=== PATIENT | female | born 1970 | race Caucasian/White ===

== ENCOUNTER 2017-07-22 20:32 | Emergency (ER) | payer BC, OTHER, SELFPAY ==
[2017-07-22] MEDS ORDERED: diphenhydrAMINE 50 MG/ML VIAL ONE (21:11)
[2017-07-22] MEDS ORDERED: methylPREDNISolone Sod Succ/PF 125 MG/2 ML VIAL ONE (21:13)
[2017-07-22] MEDS ORDERED: Famotidine/PF 20 mg/2ml Vial ONE (21:20)
[2017-07-22] MEDS ORDERED: Lorazepam 2 MG/ML VIAL ONE (22:42)
== END 2017-07-22 23:45 | disposition home or self-care (01) ==
LOC: ERS 20:32
DX: T78.40XA Allergy, unspecified, initial encounter (principal); F41.9 Anxiety disorder, unspecified; K21.9 Gastro-esophageal reflux disease without esophagitis; F17.210 Nicotine dependence, cigarettes, uncomplicated; Z79.899 Other long term (current) drug therapy
CPT/HCPCS: 96361; 96374; 96375; J1200; J2060; J2930; S0028

== ENCOUNTER 2018-03-30 12:07 | Emergency (ER) | payer BC, SELFPAY ==
[~2018-03-30 12:07] MED LIST: ISOVUE-370 76%-LOCM 1 ML ONE
[2018-03-30] MEDS ORDERED: Morphine 4 MG/ML VIAL ONE (12:27)
[2018-03-30] MEDS ORDERED: Ondansetron HCl/PF 4 MG/2 ML Vial ONE (12:27)
[2018-03-30 12:53] LABS: Bilirubin Negative (Negative); Blood, Urine Negative (Negative); Clarity CLEAR (Clear); Glucose, Urine (Dipstick) Negative (Negative); Leukocyte Negative (Negative); Nitrite Negative (Negative); Protein, Urine (Dipstick) Negative (Neg-Trace); pH, Urine 7.5 (5.0-9.0)
[2018-03-30 12:54] LABS: Hemoglobin 15.6 g/dL (12.0-16.0); Mean Corpuscular HGB CONC 33.8 g/dL (32.0-36.0); Mean Corpuscular Hemoglobin 32.4 pg (27.0-31.0); Mean Corpuscular Volume 95.9 fL (78.0-98.0); Platelet Count 383 thou/uL (130-400); RBC Distribution Width 13.4 % (11.5-14.5); Red Blood Cell (RBC) Count 4.83 mill/uL (4.20-5.40); White Blood Cell (WBC) Count 16.3 thou/uL (4.8-10.8)
[2018-03-30 13:09] LABS: Band 3 % (5-11); Lymphocytes 15 % (21-51); MDiff Complete? YES; Monocytes 6 % (0-10); Neutrophil 75 % (42-75); RBC Morphology Normal; Reactive Lymphocytes 1 % (0-10)
[2018-03-30 13:10] LABS: ALT (SGPT) 67 U/L (8-55); AST (SGOT) 21 U/L (5-34); Albumin 4.1 g/dL (3.5-5.0); Alkaline Phosphatase 105 U/L (40-150); Anion Gap 15 mmol/L (10-20); BUN (Urea Nitrogen) 11 mg/dL (7.0-18.7); Bilirubin, Total 0.3 mg/dL (0.2-1.2); Calc. Creatinine Clearance 0 mL/min (70-130); Calcium 9.1 mg/dL (7.8-10.44); Carbon Dioxide 23 mmol/L (22-29); Chloride 99 mmol/L (98-107); Estimated GFR-MDRD 63; Globulin 3.1 g/dL (2.4-3.5); Glucose 120 mg/dL (70-105); Lipase 39 U/L (8-78); Potassium 4.4 mmol/L (3.5-5.1); Protein, Total 7.2 g/dL (6.0-8.3); Sodium 133 mmol/L (136-145)
[2018-03-30] MEDS ORDERED: Ketorolac Tromethamine 30 MG/ML VIAL ONE (13:45)
--- NOTE | 2018-03-30 13:50 | RAD ---
ACUTE ABDOMINAL SERIES: Date: 03/30/18 HISTORY: Abdominal pain for 2-3 days. Nausea. FINDINGS: CHEST: Comparison with 12/09/16. The cardiac silhouette and pulmonary vasculature are within normal limits. The lungs are clear. There is mild elevation of right hemidiaphragm. No free intraperitoneal air is s een beneath the hemidiaphragms. No other interval change. UPRIGHT AND SUPINE VIEWS OF ABDOMEN: There is a moderate to large amount of retained fecal material seen throughout the colon. There is a gas-filled dilated loop of small bowel in the right upper quadrant which may actually represent the c olon. However, this cannot be further evaluated on this exam. Multiple surgical clips overlie the lef t abdomen. Phleboliths overlie the left hemipelvis. Osseous structures are intact. IMPRESSION: Constipation with moderate to large amount of retained fecal material seen throughout the colon. Ther e is a gas-filled dilated loop of colon representing the hepatic flexure. POS: [facility]
--- NOTE | 2018-03-30 14:36 | CT ---
CT ABDOMEN AND PELVIS WITH IV CONTRAST: DATE: 03/30/18. HISTORY: Generalized abdominal pain for 2-3 days. COMPARISON: 12/09/16. FINDINGS: There is minimal dependent atelectasis at each lung base. Postsurgical changes left upper quadrant are again present. There is a large amount of retained feca l material seen throughout the colon to the level of the proximal sigmoid colon. The ascending colon measured 8 cm in diameter. Gas density seen in the right upper quadrant on the recent radiograph of the abdomen is related to gas in the hepatic flexure. There is no mass seen at the level of transit ion from dilated colon filled with retained fecal material and a normal-caliber sigmoid colon. There are postsurgical changes involving the descending colon. There is a small hiatal hernia. The small bowel is normal in caliber. The liver, spleen, pancreas, bilateral adrenal glands, kidneys, abdominal aorta, and urinary bladder demonstrate a normal CT appearance. A small amount of free fluid is present in the right hemipelvis. No fluid collection, free intraperitoneal gas, or lymphadenopathy is seen in the abdomen or pelvis. IMPRESSION: 1. Constipation with dilatation of the majority of the colon from the level of the sacrum to the sandi ction of the descending colon and sigmoid colon. No constricting lesion is seen in this region. 2. Postsurgical changes of the descending colon. No dilated loops of small bowel are seen. 3. Small hiatal hernia. 4. Small amount of free fluid in the pelvis. 5. Minimal linear stranding seen at the level of the umbilicus in the anterior abdomen which could b e related to mild scarring. 6. Hysterectomy. POS: [facility]
== END 2018-03-30 14:24 | disposition home or self-care (01) ==
LOC: ERS 12:07
DX: K59.00 Constipation, unspecified (principal); K21.9 Gastro-esophageal reflux disease without esophagitis; G43.909 Migraine, unspecified, not intractable, without status migrainosus; F17.210 Nicotine dependence, cigarettes, uncomplicated; F41.9 Anxiety disorder, unspecified; Z71.6 Tobacco abuse counseling
CPT/HCPCS: 74022; 74177; 80053; 81003; 83690; 85025; 96361; 96374; 96375; 99406; J1885; J2270; J2405

== ENCOUNTER 2018-05-03 13:11 | Emergency (ER) | payer BC ==
[2018-05-03 13:49] LABS: #Eosinphils 0.2 thou/uL (0.0-0.7); #Lymphocytes 1.3 thou/uL (1.20-3.40); #Monocytes 1.1 thou/uL (0.11-0.59); #Neutrophils 6.8 thou/uL (1.40-6.50); %Basophils 0.3 % (0.0-1.0); %Eosinophils 1.7 % (0.0-10.0); %Lymphocytes 14.2 % (21.0-51.0); %Monocytes 11.8 % (0.0-10.0); Hemoglobin 14.2 g/dL (12.0-16.0); Mean Corpuscular HGB CONC 33.9 g/dL (32.0-36.0); Mean Corpuscular Hemoglobin 32.6 pg (27.0-31.0); Mean Corpuscular Volume 96.2 fL (78.0-98.0); Mean Platelet Volume 7.6 fL (7.4-10.4); Platelet Count 286 thou/uL (130-400); RBC Distribution Width 12.8 % (11.5-14.5); Red Blood Cell (RBC) Count 4.35 mill/uL (4.20-5.40); White Blood Cell (WBC) Count 9.5 thou/uL (4.8-10.8)
[2018-05-03 14:05] LABS: ALT (SGPT) 20 U/L (8-55); AST (SGOT) 14 U/L (5-34); Albumin 3.9 g/dL (3.5-5.0); Alkaline Phosphatase 71 U/L (40-150); Anion Gap 12 mmol/L (10-20); BUN (Urea Nitrogen) 9 mg/dL (7.0-18.7); Bilirubin, Total 0.6 mg/dL (0.2-1.2); Calc. Creatinine Clearance 0 mL/min (70-130); Carbon Dioxide 26 mmol/L (22-29); Chloride 102 mmol/L (98-107); Estimated GFR-MDRD 73; Globulin 2.4 g/dL (2.4-3.5); Glucose 116 mg/dL (70-105); Lipase 28 U/L (8-78); Potassium 3.9 mmol/L (3.5-5.1); Protein, Total 6.3 g/dL (6.0-8.3); Sodium 136 mmol/L (136-145)
[2018-05-03] MEDS ORDERED: Dexamethasone 10 MG/ML VIAL ONE (14:15)
[2018-05-03] MEDS ORDERED: Ondansetron PF 4 MG/2 ML Vial ONE (14:15)
[2018-05-03] MEDS ORDERED: Morphine 4 MG/ML VIAL ONE (14:15)
[2018-05-03 15:13] LABS: Bilirubin Negative (Negative); Blood, Urine Negative (Negative); Clarity CLEAR (Clear); Glucose, Urine (Dipstick) Negative (Negative); Leukocyte Negative (Negative); Nitrite Negative (Negative); Protein, Urine (Dipstick) Negative (Neg-Trace); Specific Gravity, Urine 1.014 (1.002-1.036); pH, Urine 7.5 (5.0-9.0)
[2018-05-03] MEDS ORDERED: Lorazepam 0.5 MG TAB ONE ×2 (15:57→16:09)
--- NOTE | 2018-05-03 16:39 | CT ---
ABDOMEN CT WITH CONTRAST: PELVIS CT WITH CONTRAST: HISTORY: Diffuse abdominal pain. COMPARISON: 03/30/2018, 12/09/2016, 09/23/2016 FINDINGS: ABDOMEN: Infiltrate or atelectasis in the right lower lobe. Normal heart size. No significant john cardial fluid. The descending thoracic aorta and abdominal aorta have a normal caliber. No periaort ic fat stranding. Unremarkable gallbladder. The portal vein is patent. The liver, spleen, pancreas, and adrenal glands have appropriate enhancement. No gastrohepatic, retrocrural, or periportal lymphadenopathy. Symmetric attenuation of the psoas muscles. Symmetric enhancement of the kidneys. No obstructive uropathy. Limited evaluation of the alimental canal by the lack of oral contrast. Gastric mucosa and multiple normal caliber small bowel loops are noted. There appears to be a copious amount of fecal material i n a distended colon. These findings are similar to a previous examination. No obvious pneumatosis. The ileocecal junction appears to be unremarkable. An appendix is not appreciated. No inflammation at the cecal apex. There appear to be two areas of anastomosis, one at the expected level of the sp lenic flexure and the other at the mid portion of the descending colon. There is a caliber change al nikhil the descending colon, just beyond the second (distal) anastomosis. A copious amount of fecal mat erial in the colon is noted. Multiple surgical clips are noted in the left upper quadrant. PELVIS: No mass, lymphadenopathy, free air, or free fluid. The uterus is surgically absent. Unrema rkable urinary bladder. No lytic or blastic lesions in the osseous structures. IMPRESSION: 1. Right lower lobe infiltrate or atelectasis. 2. Persistent distention and dilatation of the colon. Findings may be longstanding, given that thes e are similar to the most recent CT. There does appear to be abrupt caliber change in the colon, jus t beyond the distal most anastomosis of the colon. Possibly an obstructive component at the level of caliber change should be further evaluated with a nonemergent colonoscopy. 2. Copious fecal material. Significance is uncertain. A component of constipation must be consider ed. POS: [facility]
== END 2018-05-03 16:40 | disposition home or self-care (01) ==
LOC: ERS 13:11
DX: K59.00 Constipation, unspecified (principal); E86.0 Dehydration; K13.79 Other lesions of oral mucosa; K21.9 Gastro-esophageal reflux disease without esophagitis; G43.909 Migraine, unspecified, not intractable, without status migrainosus; F41.9 Anxiety disorder, unspecified; F17.210 Nicotine dependence, cigarettes, uncomplicated; Z79.899 Other long term (current) drug therapy
CPT/HCPCS: 36415; 74177; 80053; 81003; 83605; 83690; 85025; 96361; 96374; 96375; J1100; J2270; J2405

== ENCOUNTER 2018-07-03 19:49 | Emergency (ER) | payer BC ==
[2018-07-03] MEDS ORDERED: Metoclopramide HCl 10 MG/2 ML VIAL ONE (20:43)
[2018-07-03] MEDS ORDERED: Ketorolac Tromethamine 30 MG/ML VIAL ONE (20:43)
[2018-07-03] MEDS ORDERED: Acetaminophen 500 MG TAB ONE (20:43)
[2018-07-03] MEDS ORDERED: diphenhydrAMINE 12.5 MG/5 ML UDCUP ONE (20:43)
[2018-07-03] MEDS ORDERED: diphenhydrAMINE 50 MG/ML VIAL ONE (20:45)
[2018-07-03] MEDS ORDERED: methylPREDNISolone Sod Succ/PF 125 MG/2 ML VIAL ONE (21:18)
[2018-07-03] MEDS ORDERED: Water For Inject, Bacteriostat 30 ML ONE (21:18)
--- NOTE | 2018-07-03 22:01 | RAD ---
LEFT SHOULDER THREE VIEWS; 07/03/18 HISTORY: Left shoulder pain. There is no signs of fracture, dislocation or other bony findings. IMPRESSION: Negative left shoulder. POS: [facility]
== END 2018-07-03 23:00 | disposition home or self-care (01) ==
LOC: ERS 19:49
DX: R51 Headache (principal); F41.9 Anxiety disorder, unspecified; F17.210 Nicotine dependence, cigarettes, uncomplicated; K21.9 Gastro-esophageal reflux disease without esophagitis; Z79.899 Other long term (current) drug therapy
CPT/HCPCS: 96365; 96366; 96375; J1200; J1885; J2765; J2930

== ENCOUNTER 2018-09-27 10:17 | Emergency (ER) | payer BC, SELFPAY ==
[2018-09-27] MEDS ORDERED: Metoclopramide HCl 10 MG/2 ML VIAL ONE (11:56)
[2018-09-27] MEDS ORDERED: Acetaminophen 500 MG TAB ONE (11:56)
[2018-09-27] MEDS ORDERED: diphenhydrAMINE 12.5 MG/5 ML UDCUP ONE (11:56)
[2018-09-27] MEDS ORDERED: diphenhydrAMINE 50 MG/ML VIAL ONE (11:57)
[2018-09-27] MEDS ORDERED: Ketorolac Tromethamine 30 MG/ML VIAL ONE (12:57)
[2018-09-27] MEDS ORDERED: Dexamethasone 10 MG/ML VIAL ONE (13:58)
[2018-09-27] MEDS ORDERED: Magnesium 2 GM/50 ML BAG (IN WATER) ONE (14:00)
--- NOTE | 2018-09-27 14:52 | CT ---
BRAIN CT WITHOUT IV CONTRAST: Date: 09/27/18 HISTORY: Headaches. COMPARISON: 01/31/16. FINDINGS: No focal mass or midline shift. No intra or extra-axial hemorrhage. Sinuses and mastoids are clear of acute process. IMPRESSION: No acute intracranial process. No mass or bleed. Stable from prior study. POS: [facility]
== END 2018-09-27 15:55 | disposition home or self-care (01) ==
LOC: ERS 10:17
DX: G43.909 Migraine, unspecified, not intractable, without status migrainosus (principal); R11.2 Nausea with vomiting, unspecified; K21.9 Gastro-esophageal reflux disease without esophagitis; F41.9 Anxiety disorder, unspecified; F17.210 Nicotine dependence, cigarettes, uncomplicated; Z79.899 Other long term (current) drug therapy
CPT/HCPCS: 70450; 96365; 96375; J1100; J1200; J1885; J2765; J3475; Q0163

== ENCOUNTER 2019-01-21 16:10 | Emergency (ER) | payer BC | END 2019-01-21 17:33 | disposition left against medical advice (07) | LOC: ERS 16:10 | DX: Z53.21 Procedure and treatment not carried out due to patient leaving prior to being seen by health care provider (principal) ==

== ENCOUNTER 2019-01-21 17:53 | Emergency (ER) | payer BC ==
[2019-01-21] MEDS ORDERED: Metoclopramide HCl 10 MG/2 ML VIAL ONE (19:05)
[2019-01-21] MEDS ORDERED: Ketorolac Tromethamine 30 MG/ML VIAL ONE (19:05)
[2019-01-21] MEDS ORDERED: diphenhydrAMINE 50 MG/ML VIAL ONE (19:05)
[2019-01-21] MEDS ORDERED: methylPREDNISolone Sod Succ/PF 125 MG/2 ML VIAL ONE ×2 (20:15→20:20)
[2019-01-21] MEDS ORDERED: Magnesium Sulfate 2 GM/NS 0.9% 50 ML BAG ONE (20:15)
[2019-01-21] MEDS ORDERED: Diazepam 5 MG TAB ONE (22:23)
[2019-01-21] MEDS ORDERED: Valproate Sodium 500 MG/5 ML VIAL ONE (22:27)
== END 2019-01-21 23:51 | disposition home or self-care (01) ==
LOC: SCSER 17:53
DX: G43.909 Migraine, unspecified, not intractable, without status migrainosus (principal); K21.9 Gastro-esophageal reflux disease without esophagitis; F41.9 Anxiety disorder, unspecified; F17.210 Nicotine dependence, cigarettes, uncomplicated; Z79.899 Other long term (current) drug therapy
CPT/HCPCS: 96365; 96367; 96375; J1200; J1885; J2765; J2930; J3475

== ENCOUNTER 2019-04-07 14:03 | Emergency (ER) | payer BC, SELFPAY ==
[2019-04-07] MEDS ORDERED: diphenhydrAMINE 50 MG/ML VIAL ONE (14:43)
[2019-04-07] MEDS ORDERED: Metoclopramide HCl 10 MG/2 ML VIAL ONE (14:43)
--- NOTE | 2019-04-07 14:51 | CT ---
CT OF THE BRAIN WITHOUT CONTRAST: Date: 04/07/19 COMPARISON: 09/27/18. HISTORY: Headache. TECHNIQUE: Multiple contiguous axial images were obtained in a CT of the brain without contrast. FINDINGS: The brain is normal in morphology and attenuation without focal lesions or confluent areas of infarct ion. There is no evidence of hydrocephalus, intracranial hemorrhage, or extra-axial fluid collection. The calvarium and overlying soft tissues are unremarkable. The visualized paranasal sinuses and masto id air cells are well aerated. IMPRESSION: No evidence of acute intracranial abnormality. POS: [facility]
[2019-04-07 15:03] LABS: #Basophils 0.1 thou/uL (0.0-0.2); #Eosinphils 0.1 thou/uL (0.0-0.7); #Lymphocytes 1.7 thou/uL (1.20-3.40); #Monocytes 0.6 thou/uL (0.11-0.59); #Neutrophils 5.8 thou/uL (1.40-6.50); %Basophils 0.7 % (0.0-1.0); %Eosinophils 1.2 % (0.0-10.0); %Lymphocytes 20.8 % (21.0-51.0); %Monocytes 6.7 % (0.0-10.0); %Neutrophils 70.6 % (42.0-75.0); Hemoglobin 14.9 g/dL (12.0-16.0); Mean Corpuscular HGB CONC 34.3 g/dL (32.0-36.0); Mean Corpuscular Hemoglobin 33.1 pg (27.0-31.0); Mean Corpuscular Volume 96.6 fL (78.0-98.0); Mean Platelet Volume 6.8 fL (7.4-10.4); Platelet Count 397 thou/uL (130-400); RBC Distribution Width 12.6 % (11.5-14.5); Red Blood Cell (RBC) Count 4.49 mill/uL (4.20-5.40); White Blood Cell (WBC) Count 8.2 thou/uL (4.8-10.8)
[2019-04-07 15:24] LABS: ALT (SGPT) 75 U/L (8-55); AST (SGOT) 39 U/L (5-34); Albumin 4.6 g/dL (3.5-5.0); Alkaline Phosphatase 83 U/L (40-110); Anion Gap 16 mmol/L (10-20); BUN (Urea Nitrogen) 9 mg/dL (7.0-18.7); Bilirubin, Total 0.2 mg/dL (0.2-1.2); Calc. Creatinine Clearance 0 mL/min (70-130); Calcium 10.2 mg/dL (7.8-10.44); Carbon Dioxide 22 mmol/L (22-29); Chloride 103 mmol/L (98-107); Estimated GFR-MDRD 64; Globulin 2.6 g/dL (2.4-3.5); Glucose 124 mg/dL (70-105); Potassium 4.1 mmol/L (3.5-5.1); Protein, Total 7.2 g/dL (6.0-8.3); Sodium 137 mmol/L (136-145)
== END 2019-04-07 16:31 | disposition home or self-care (01) ==
LOC: ERS 14:03
DX: R51 Headache (principal); K21.9 Gastro-esophageal reflux disease without esophagitis; F41.9 Anxiety disorder, unspecified; F17.210 Nicotine dependence, cigarettes, uncomplicated
CPT/HCPCS: 36415; 70450; 80053; 85025; 96365; 96366; 96375; J1200; J2765

== ENCOUNTER 2019-06-25 18:45 | Emergency (ER) | payer SELFPAY ==
[~2019-06-25 18:45] MED LIST changes: -ISOVUE-370 76%-LOCM 1 ML ONE; +Iopamidol-370 76% 500 ML 1 ML ONE
[2019-06-25 19:07] LABS: #Eosinphils 0.4 thou/uL (0.0-0.7); #Lymphocytes 1.8 thou/uL (1.20-3.40); #Monocytes 0.8 thou/uL (0.11-0.59); #Neutrophils 4.3 thou/uL (1.40-6.50); %Basophils 0.2 % (0.0-1.0); %Eosinophils 5.1 % (0.0-10.0); %Lymphocytes 24.3 % (21.0-51.0); %Monocytes 11.1 % (0.0-10.0); %Neutrophils 59.3 % (42.0-75.0); Hemoglobin 14.4 g/dL (12.0-16.0); Mean Corpuscular HGB CONC 34.9 g/dL (32.0-36.0); Mean Corpuscular Hemoglobin 33.5 pg (27.0-31.0); Mean Corpuscular Volume 96.1 fL (78.0-98.0); Mean Platelet Volume 7.2 fL (7.4-10.4); Platelet Count 303 thou/uL (130-400); RBC Distribution Width 11.7 % (11.5-14.5); Red Blood Cell (RBC) Count 4.29 mill/uL (4.20-5.40); White Blood Cell (WBC) Count 7.3 thou/uL (4.8-10.8)
[2019-06-25] MEDS ORDERED: Ondansetron PF 4 MG/2 ML Vial ONE (19:17)
[2019-06-25] MEDS ORDERED: Morphine 4 MG/ML VIAL ONE (19:17)
[2019-06-25 19:30] LABS: ALT (SGPT) 92 U/L (8-55); AST (SGOT) 40 U/L (5-34); Albumin 4.2 g/dL (3.5-5.0); Alkaline Phosphatase 91 U/L (40-110); Anion Gap 9 mmol/L (10-20); BUN (Urea Nitrogen) 8 mg/dL (7.0-18.7); Bilirubin, Total 0.3 mg/dL (0.2-1.2); Calc. Creatinine Clearance 0 mL/min (70-130); Calcium 9.6 mg/dL (7.8-10.44); Carbon Dioxide 32 mmol/L (22-29); Chloride 102 mmol/L (98-107); Estimated GFR-MDRD 69; Globulin 2.4 g/dL (2.4-3.5); Glucose 106 mg/dL (70-105); Lipase 28 U/L (8-78); Potassium 3.5 mmol/L (3.5-5.1); Protein, Total 6.6 g/dL (6.0-8.3); Sodium 139 mmol/L (136-145)
[2019-06-25 19:41] LABS: Bilirubin Negative (Negative); Blood, Urine Trace (Negative); Clarity Clear (Clear); Glucose, Urine (Dipstick) Normal (Negative); Leukocyte Negative Leu/uL (Negative); Nitrite Negative (Negative); Protein, Urine (Dipstick) Negative (Neg-Trace); RBC/HPF 0-3 HPF (0-3); Squamous Epithelial 0-3 HPF (0-3); Urobilinogen Normal mg/dL (Less than 2); WBC/HPF 0-3 HPF (0-3)
[2019-06-25 19:49] LABS: Bacteria/HPF Rare-Few HPF (None Seen)
--- NOTE | 2019-06-25 20:42 | CT ---
CT OF THE ABDOMEN AND PELVIS WITH IV CONTRAST INDICATION: Abdominal pain with history of vomiting and constipation COMPARISON: Prior CT the abdomen and pelvis dated May 03, 2018. FINDINGS: ABDOMEN: Lung bases: There is bibasilar atelectasis. There is a small hiatal hernia. Liver: No focal lesion. Gallbladder: The gallbladder is mildly distended. Pancreas: Normal. Adrenal glands: Normal. Spleen: Normal. Kidneys and ureters: There is a stable tiny cyst involving the superior pole the right kidney. The le ft kidney is normal-appearing. Vasculature: Normal. Lymph nodes:No lymphadenopathy. Free fluid in abdomen:No free fluid is evident. PELVIS: Small and large bowel: There is postsurgical change of a partial colectomy and anastomosis in the reg ion of the descending colon. There is a moderate amount of retained stool. There are a few mildly prominent loops of small bowel within the left upper quadrant of the abdomen without evidence of obst ruction. Appendix:Not demonstrated. Bladder: Moderately distended Rectal and perirectal soft tissues:Normal. Reproductive structures: Not demonstrated and presumed to be surgically absent Free fluid in pelvis: No free fluid is evident. Lymphadenopathy pelvis: No lymphadenopathy is evident. Osseous structures: No acute osseous abnormality. No destructive osteolytic or osteoblastic lesion i s identified. There is scattered degenerative and osteoarthritic changes. Soft tissues:Normal. IMPRESSION: 1. . Mildly prominent loops of small bowel within the left upper quadrant of the abdomen can be seen with enteritis. 2. Moderate amount of retained stool within the colon.
== END 2019-06-25 21:20 | disposition home or self-care (01) ==
LOC: ERS 18:45
DX: R11.2 Nausea with vomiting, unspecified (principal); G43.909 Migraine, unspecified, not intractable, without status migrainosus; F41.9 Anxiety disorder, unspecified; F17.210 Nicotine dependence, cigarettes, uncomplicated; K21.9 Gastro-esophageal reflux disease without esophagitis; Z79.899 Other long term (current) drug therapy
CPT/HCPCS: 36415; 74177; 80053; 81003; 81015; 83690; 84484; 85025; 93005; 96361; 96374; 96375; J2270; J2405; Q9967